=== PATIENT | female | born 1985 | race Asian ===

== ENCOUNTER 2018-12-15 01:58 | Emergency (ER) | payer OTHER ==
[~2018-12-15] VITALS: Ht 157.5 cm; Wt 59.0 kg
[2018-12-15 02:22] VITALS: BP 126/83
[2018-12-15] MEDS ORDERED: KETOROLAC TROMETHAMINE INJ 60 MG/2 ML VIAL IM ONE ×2 (02:54→03:00)
== END 2018-12-15 03:04 | disposition home or self-care (01) ==
LOC: ER 02:04
DX: M54.5 Low back pain (principal); F17.200 Nicotine dependence, unspecified, uncomplicated; W51.XXXA Accidental striking against or bumped into by another person, initial encounter; Y93.89 Activity, other specified; Y92.89 Other specified places as the place of occurrence of the external cause; Y99.0 Civilian activity done for income or pay
CPT/HCPCS: 96372; 99283; J1885

== ENCOUNTER 2020-01-06 15:35 | Emergency (ER) | payer OTHER ==
[~2020-01-06] VITALS: Ht 154.9 cm; Wt 61.2 kg
[2020-01-06 15:52] VITALS: BP 139/89
--- NOTE | 2020-01-06 17:51 | NUR ---
provided w/ velcro wrist spint. d/c in stable condition.
== END 2020-01-06 17:52 | disposition home or self-care (01) ==
LOC: ER 15:41
DX: S62.101A Fracture of unspecified carpal bone, right wrist, initial encounter for closed fracture (principal); W22.8XXA Striking against or struck by other objects, initial encounter; Y93.89 Activity, other specified; Y92.89 Other specified places as the place of occurrence of the external cause; Y99.8 Other external cause status
CPT/HCPCS: 73110